=== PATIENT | female | born 1980 | race Caucasian/White ===

== ENCOUNTER 2018-12-06 23:56 | Emergency (ER) | payer OTHER ==
[~2018-12-06] VITALS: Ht 170.2 cm; Wt 88.5 kg
--- NOTE | 2018-12-07 00:37 | NUR ---
Dr. Rivas at bedside for MSE.
[2018-12-07] MEDS ORDERED: PANTOPRAZOLE SODIUM 40 MG TABLET.DR PO ONE ×2 (00:45→00:48)
[2018-12-07] MEDS ORDERED: LIDOCAINE VISCUS 2% 15 ML UDC MM ONE (00:45)
[2018-12-07] MEDS ORDERED: MAG HYDROX/AL HYDROX/SIMETH 30 ML LIQUID UDC PO ONE (00:45)
[2018-12-07] MEDS ORDERED: LIDOCAINE VISCUS 2% 15 ML UDC ONE (00:47)
[2018-12-07] MEDS ORDERED: MAG HYDROX/AL HYDROX/SIMETH 30 ML LIQUID UDC ONE (00:47)
--- NOTE | 2018-12-07 01:09 | NUR ---
Patient discharged to home in stable conditon. Written and verbal after care instructions given. Patient verbalizes understanding of instructions. Pt ambulated out of ER with steady gait, VSS, no acute signs of distress, all belongings taken.
[2018-12-07 01:11] VITALS: BP 111/68
== END 2018-12-07 01:12 | disposition home or self-care (01) ==
LOC: ER 23:59
DX: K29.70 Gastritis, unspecified, without bleeding (principal); F17.200 Nicotine dependence, unspecified, uncomplicated
CPT/HCPCS: 93005; A4663